=== PATIENT | male | born 1990 | race Two or more races ===

== ENCOUNTER 2017-06-24 23:14 | Emergency (ER) | payer SELFPAY ==
[~2017-06-24] VITALS: Ht 170.2 cm; Wt 79.4 kg
--- NOTE | 2017-06-24 23:30 | NUR ---
Dr. Petersen at bedside for MSE.
[2017-06-24] MEDS ORDERED: diphenhydrAMINE 50 MG/1 ML VIAL ONE (23:42)
[2017-06-24] MEDS ORDERED: METOCLOPRAMIDE HCL 10 MG/2 ML VIAL ONE (23:43)
[2017-06-24] MEDS ORDERED: METOCLOPRAMIDE HCL 10 MG/2 ML VIAL IM ONE (23:45)
[2017-06-24] MEDS ORDERED: diphenhydrAMINE 50 MG/1 ML VIAL IM ONE (23:45)
--- NOTE | 2017-06-24 23:55 | NUR ---
Patient came to the ER with steady gait, reports pulsing headache, dizziness, and itchiness.
[2017-06-25 00:01] LABS: BASOPHILS % (AUTO) 0.7 % (0.0-2.0); EOSINOPHILS # (AUTO) 0.5 K/uL (0.0-0.7); EOSINOPHILS % (AUTO) 7.8 % (0.0-7.0); HEMATOCRIT 42.6 % (36.7-47.1); HEMOGLOBIN 14.8 g/dL (12.5-16.3); LYMPHOCYTES # (AUTO) 2.6 K/uL (20.0-40.0); LYMPHOCYTES % (AUTO) 36.9 % (20.5-51.5); MEAN CORPUSCULAR HEMOGLOBIN 28.1 uug (23.8-33.4); MEAN CORPUSCULAR HGB CONC 35 g/dL (32.5-36.3); MEAN CORPUSCULAR VOLUME 80.8 fL (73.0-96.2); MONOCYTES # (AUTO) 0.6 K/uL (2.0-10.0); MONOCYTES % (AUTO) 8.8 % (0.0-11.0); NEUTROPHILS # (AUTO) 3.2 K/uL (1.8-8.9); NEUTROPHILS % (AUTO) 45.8 % (38.5-71.5); PLATELET COUNT (AUTO) 242 K/uL (152-348); RED BLOOD CELL COUNT(AUTO) 5.27 MIL/uL (4.06-5.63); WHITE BLOOD COUNT (AUTO) 7.1 K/uL (3.6-10.2)
--- NOTE | 2017-06-25 00:12 | NUR ---
Patient out of ER for CT.
[2017-06-25 00:15] LABS: POTASSIUM 3.7 mmol/L (3.5-5.1)
[2017-06-25 00:19] LABS: BILIRUBIN,DIRECT 0.1 mg/dL (0.0-0.2); BILIRUBIN,TOTAL 0.8 mg/dL (0.2-1.0); TOTAL PROTEIN, SERUM 7.7 g/dL (6.4-8.2)
--- NOTE | 2017-06-25 00:24 | NUR ---
Patient back to ER from CT.
--- NOTE | 2017-06-25 00:30 | NUR ---
Patient reports headache is gone.
--- NOTE | 2017-06-25 01:39 | NUR ---
Patient does not wish to proceed with medical care recommended by Dr. Petersen. Patient given information related to possible complications, up to and including , which could occur as a result of leaving the hospital at this time. Patient verbalizes understanding of risks involved due to leaving against medical advice. Patient has signed AMA form. Patient out of ER with steady gait, VSS, all belongings taken, no acute signs of distress.
[2017-06-25 01:50] VITALS: BP 122/70
== END 2017-06-25 01:50 | disposition home or self-care (01) ==
LOC: ER 23:17
DX: R51 Headache (principal); B86 Scabies
CPT/HCPCS: 36415; 70450; 80048; 80076; 85025; 96372 ×2; 99285; A4663; J1200; J2765

== ENCOUNTER 2017-06-25 15:25 | Emergency (ER) | payer SELFPAY ==
[~2017-06-25] VITALS: Ht 175.3 cm; Wt 86.2 kg
[2017-06-25] MEDS ORDERED: NORMAL SALINE FLUSH 10 ML DISP.SYRIN ONE (15:56)
[2017-06-25] MEDS ORDERED: IOHEXOL 350 100 ML INFUS..BTL ONE (15:56)
[2017-06-25] MEDS ORDERED: IV NORMAL SALINE 100 ML ONE (15:56)
[2017-06-25 17:15] VITALS: BP 119/71
--- NOTE | 2017-06-25 17:15 | NUR ---
Patient discharged to home in stable conditon. Written and verbal after care instructions given. Patient verbalizes understanding of instructions.pt walks in steady gait, the translation was provided by dr. sigala
== END 2017-06-25 17:19 | disposition home or self-care (01) ==
LOC: ER 15:28
DX: R51 Headache (principal)
CPT/HCPCS: 70496; A4663; J3490; Q9967